=== PATIENT | male | born 1970 | race Asian ===

== ENCOUNTER 2024-12-21 20:15 | Inpatient (IN) | payer OTHER ==
[~2024-12-21] VITALS: Ht 174 cm; Wt 112.0 kg
[2024-12-21 20:31] VITALS: BP 96/63; PULSE 80; RESP 20; TEMP 97.7; O2SAT 95
[2024-12-21 20:46] LABS: BASOPHIL # 0.0 10^3/uL (0.0-0.1); BASOPHIL % 0.2 % (0.2-1.2); EOSINOPHIL # 0.0 10^3/uL (0.0-0.2); EOSINOPHIL % 0.1 % (0.0-5.0); HEMATOCRIT(ML) 52.7 % (37.0-53.0); IG % 0.40 % (0.00-0.50); LYMPHOCYTES # 1.17 10^3/uL1 (1.0-4.8); LYMPHOCYTES % 6.7 % (24.0-44.0); MEAN CORP HGB 28.9 pg (26-34); MEAN CORP HGB CONCENTRATION 32.8 g/dL (33-36.5); MEAN CORP VOLUME 88.1 fL (78-100); MONOCYTES # 1.0 10^3/uL (0.3-0.8); MONOCYTES % 5.6 % (5.0-12.0); NEUTROPHIL # 15.2 10^3/uL (1.8-7.7); NEUTROPHILS % 87.0 % (41.0-85.0); RED BLOOD CELL 5.98 10^6/uL (4.50-5.90); RED CELL DISTRIBUTION WIDTH 12.0 % (11.5-14.5); WHITE BLOOD CELL 17.4 10^3/uL (4.5-11.0)
[2024-12-21 20:59] LABS: INR 1.0; PROTHROMBIN PROTIME 10.4 SEC (9.3-11.6)
[2024-12-21] MEDS ORDERED: ASPIRIN ONE (20:59)
[2024-12-21] MEDS ORDERED: OFIRMEV 100 ML IV ONE (20:59)
[2024-12-21] MEDS ORDERED: ZOFRAN ONE (20:59)
[2024-12-21] MEDS ORDERED: NS 1000ML 1,000 ML ONE (20:59)
[2024-12-21 21:05] LABS: ALANINE AMINOTRANSFERASE(ML) 90.0 U/L (12-78); ALBUMIN(ML) 4.7 g/dL (3.4-5.0); CREATININE SERUM 3.18 mg/dL (0.59-1.40); EST GFR, NON-AA 20.6 (>/=60); TROPONIN I HIGH SENSITIVITY 12.0 ng/L (0-75)
[2024-12-21] MEDS: ZOFRAN IV STA (21:09)
[2024-12-21] MEDS: ASPIRIN PO STA (21:10)
[2024-12-21] MEDS: NS 1000ML 1,000 ML STA (21:10)
[2024-12-21] MEDS: OFIRMEV 100 ML IV STA (21:11)
[2024-12-21] MEDS: NS 1000ML 1,000 ML IV SCH (22:10)
[2024-12-21 22:20] VITALS: BP 119/60; PULSE 67; RESP 17; TEMP 97.7; O2SAT 93
[2024-12-22] VITALS: BP 105/66; PULSE 74; RESP 18; TEMP 97.3; O2SAT 94
[2024-12-22 04:00] VITALS: BP 102/62; PULSE 62; RESP 18; TEMP 97.5; O2SAT 94
[2024-12-22] MEDS ORDERED: LISI5TAB18 PO (04:32)
[2024-12-22] MEDS ORDERED: METF500T27 PO (04:32)
[2024-12-22] MEDS ORDERED: ATOR10TA PO (04:32)
[2024-12-22 06:06] LABS: BASOPHIL # 0.0 10^3/uL (0.0-0.1); BASOPHIL % 0.2 % (0.2-1.2); EOSINOPHIL # 0.0 10^3/uL (0.0-0.2); EOSINOPHIL % 0.2 % (0.0-5.0); HEMATOCRIT(ML) 43.7 % (37.0-53.0); IG % 0.20 % (0.00-0.50); LYMPHOCYTES # 1.70 10^3/uL1 (1.0-4.8); LYMPHOCYTES % 13.2 % (24.0-44.0); MEAN CORP HGB 29.3 pg (26-34); MEAN CORP HGB CONCENTRATION 33.4 g/dL (33-36.5); MEAN CORP VOLUME 87.6 fL (78-100); MONOCYTES # 0.9 10^3/uL (0.3-0.8); MONOCYTES % 6.7 % (5.0-12.0); NEUTROPHIL # 10.3 10^3/uL (1.8-7.7); NEUTROPHILS % 79.5 % (41.0-85.0); RED BLOOD CELL 4.99 10^6/uL (4.50-5.90); RED CELL DISTRIBUTION WIDTH 12.2 % (11.5-14.5); WHITE BLOOD CELL 12.9 10^3/uL (4.5-11.0)
[2024-12-22] MEDS ORDERED: DEXTROSE 50%-WATER SYRINGE IV PRN (06:30)
[2024-12-22 06:51] LABS: ALANINE AMINOTRANSFERASE(ML) 69.0 U/L (12-78); ALBUMIN(ML) 3.5 g/dL (3.4-5.0); CREATININE SERUM 1.74 mg/dL (0.59-1.40); EST GFR, NON-AA 41.2 (>/=60)
[2024-12-22] MEDS: HUMULIN R SQ SCH (07:30)
[2024-12-22 07:58] VITALS: BP 107/67; PULSE 73; RESP 18; TEMP 97.6; O2SAT 98
[2024-12-22 12:43] VITALS: BP 118/68; PULSE 76; RESP 18; TEMP 97; O2SAT 98
[2024-12-22 16:53] VITALS: BP 111/72; PULSE 61; RESP 18; TEMP 97.3; O2SAT 98
[2024-12-22 20:11] VITALS: BP 125/80; PULSE 62; RESP 18; TEMP 97.7; O2SAT 97
[2024-12-23 00:22] VITALS: BP 105/55; PULSE 66; RESP 18; TEMP 98.1; O2SAT 96
[2024-12-23 03:55] VITALS: BP 109/72; PULSE 54; RESP 18; TEMP 98.1; O2SAT 94
[2024-12-23 06:09] LABS: CREATININE SERUM 1.09 mg/dL (0.59-1.40); EST GFR, NON-AA 70.8 (>/=60)
[2024-12-23 07:18] VITALS: BP 112/71; PULSE 55; RESP 16; TEMP 97.6; O2SAT 96
[2024-12-23 10:04] VITALS: BP 112/71; PULSE 55; RESP 16; TEMP 97.6; O2SAT 96
== END 2024-12-23 09:50 | disposition home or self-care (01) | DRG 684 ==
LOC: ER 20:15 → OBS 21:18 → OBSVTOIN 21:18 → EDBEDREQ 21:42 → EDBEDREQSVC 21:42 → MS 12-22 14:36
PROVIDERS: ADMIT Internal Medicine; ATTEND Internal Medicine
DX: N17.9 Acute kidney failure, unspecified (principal); D72.829 Elevated white blood cell count, unspecified; E11.9 Type 2 diabetes mellitus without complications; E78.00 Pure hypercholesterolemia, unspecified; E86.1 Hypovolemia; F17.210 Nicotine dependence, cigarettes, uncomplicated; I10 Essential (primary) hypertension; Z79.899 Other long term (current) drug therapy
CPT/HCPCS: 36415; 71045; 80048; 80053; 82550; 82948; 83735; 83880; 84484; 85025; 85610; 85730; 93005; 96365; 96375; 99291; G0378; J0131; J1815; J2405; J7030; J8499